=== PATIENT | female | born 1990 ===

== ENCOUNTER 2021-12-09 23:25 | Inpatient (IN) | payer MEDICARE, MEDICAID, SELFPAY ==
[2021-12-09 23:45] VITALS: BP 118/72; PULSE 84; RESP 20; TEMP 36.4; O2SAT 97; BMI 29.4
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
[2021-12-10 06:00] VITALS: BP 110/67; PULSE 65; RESP 18; TEMP 36.1; O2SAT 95
[2021-12-10 06:51] LABS: Glucose Point of Care 119 mg/dL (70-110)
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
[2021-12-10] MEDS: escitalopram 10 mg Tablet 20 MG PO (09:55)
[2021-12-10] MEDS: metformin 500 mg Tablet 1000 MG PO ×2 (09:55→17:56)
[2021-12-10] MEDS: OLANZapine 5 mg TABLET PO ×2 (09:55→17:56)
[2021-12-10] MEDS: pioglitazone 30 mg Tablet 15 MG PO (10:46)
[2021-12-10 11:18] LABS: Glucose Point of Care 134 mg/dL (70-110)
--- NOTE | 2021-12-10 11:22 | NPU.GN ---
[facility] Topic:Coping Mechanisms Activity General Mood of Group: Ning did attend and participate in group today. Her hygiene was ok and she was pleasant and social with others in group.
[2021-12-10 14:00] VITALS: BP 112/69; PULSE 86; RESP 18; TEMP 36.6; O2SAT 97
[2021-12-10 16:56] LABS: Glucose Point of Care 115 mg/dL (70-110)
[2021-12-10] MEDS: prazosin 1 mg Capsule PO (20:40)
[2021-12-10 20:42] LABS: Glucose Point of Care 155 mg/dL (70-110)
[2021-12-10 20:46] VITALS: BP 119/76; PULSE 72; RESP 16; TEMP 36.7; O2SAT 95
[2021-12-11 06:00] VITALS: BP 103/65; PULSE 82; RESP 17; TEMP 36.6; O2SAT 95
[2021-12-11 07:05] LABS: Glucose Point of Care 119 mg/dL (70-110)
[2021-12-11] MEDS: escitalopram 10 mg Tablet 20 MG PO (10:31)
[2021-12-11] MEDS: OLANZapine 5 mg TABLET PO ×2 (10:31→17:16)
[2021-12-11] MEDS: metformin 500 mg Tablet 1000 MG PO ×2 (10:32→17:16)
[2021-12-11 11:54] LABS: Glucose Point of Care 132 mg/dL (70-110)
[2021-12-11 13:47] VITALS: BP 104/68; PULSE 82; RESP 16; TEMP 36.4; O2SAT 96
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
[2021-12-11 16:27] LABS: Glucose Point of Care 146 mg/dL (70-110)
[2021-12-11] MEDS: prazosin 1 mg Capsule PO (20:01)
[2021-12-11 21:23] VITALS: BP 104/68; PULSE 82; RESP 16; TEMP 36.4; O2SAT 96
[2021-12-11 21:24] VITALS: BP 127/82; PULSE 80; RESP 18; TEMP 36.6; O2SAT 97
[2021-12-12 06:00] VITALS: BP 122/70; PULSE 77; RESP 18; TEMP 36.5; O2SAT 97
[2021-12-12] MEDS: metformin 500 mg Tablet 1000 MG PO ×2 (09:28→17:30)
[2021-12-12] MEDS: escitalopram 10 mg Tablet 20 MG PO (09:28)
[2021-12-12] MEDS: OLANZapine 5 mg TABLET PO ×2 (09:29→17:30)
[2021-12-12] MEDS: pioglitazone 30 mg Tablet 15 MG PO (09:30)
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
[2021-12-12 14:00] VITALS: BP 109/70; PULSE 76; RESP 18; TEMP 36.6; O2SAT 96
[2021-12-12 20:12] VITALS: BP 96/62; PULSE 69; RESP 18; TEMP 36.4; O2SAT 95
[2021-12-12] MEDS: prazosin 1 mg Capsule PO (20:34)
[2021-12-13 06:00] VITALS: BP 93/62; PULSE 78; RESP 18; TEMP 36.6; O2SAT 94
[2021-12-13 09:08] LABS: Glucose Point of Care 132 mg/dL (70-110)
[2021-12-13] MEDS: pioglitazone 30 mg Tablet 15 MG PO (09:10)
[2021-12-13] MEDS: metformin 500 mg Tablet 1000 MG PO ×2 (09:10→17:05)
[2021-12-13] MEDS: escitalopram 10 mg Tablet 20 MG PO (09:10)
[2021-12-13] MEDS: OLANZapine 5 mg TABLET PO ×2 (09:10→17:05)
[2021-12-13 11:13] LABS: Glucose Point of Care 175 mg/dL (70-110)
[2021-12-13] MEDS: nicotine 2 mg Gum BUCCAL ×4 (11:17→21:30)
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
[2021-12-13 14:00] VITALS: BP 122/77; PULSE 71; RESP 16; TEMP 36.2; O2SAT 99
[2021-12-13 16:47] LABS: Glucose Point of Care 271 mg/dL (70-110)
[2021-12-13 20:21] VITALS: BP 124/86; PULSE 85; RESP 20; O2SAT 98
[2021-12-13 20:34] LABS: Glucose Point of Care 223 mg/dL (70-110)
[2021-12-13] MEDS: prazosin 1 mg Capsule PO (20:57)
[2021-12-13] MEDS: OLANZapine 5 mg ODT PO (21:54)
--- NOTE | 2021-12-14 03:47 | PC.NURSE ---
2154- Zyprexa given for agitation. It was effective.
[2021-12-14 06:00] VITALS: BP 107/71; PULSE 82; RESP 20; TEMP 36.6; O2SAT 98; BMI 29.4
[2021-12-14 07:15] LABS: Glucose Point of Care 139 mg/dL (70-110)
[2021-12-14] MEDS: nicotine 2 mg Gum BUCCAL ×5 (07:19→20:25)
[2021-12-14] MEDS: pioglitazone 30 mg Tablet 15 MG PO (08:26)
[2021-12-14] MEDS: OLANZapine 5 mg TABLET PO ×2 (08:26→17:11)
[2021-12-14] MEDS: escitalopram 10 mg Tablet 20 MG PO (08:26)
[2021-12-14] MEDS: metformin 500 mg Tablet 1000 MG PO ×2 (08:26→17:11)
[2021-12-14] MEDS: OLANZapine 5 mg ODT PO (11:17)
--- NOTE | 2021-12-14 11:19 | PC.NURSE ---
Prn note Patient continues to c/o voices. Zyprexa Zydis given to help with voices and anxiety. Will monitor for effectiveness.
[2021-12-14 11:31] LABS: Glucose Point of Care 163 mg/dL (70-110)
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
[2021-12-14 14:00] VITALS: BP 103/72; PULSE 86; RESP 20; TEMP 36.7; O2SAT 98
[2021-12-14] MEDS: acetaminophen 325 mg Tablet 650 MG PO (15:54)
[2021-12-14 16:36] LABS: Glucose Point of Care 204 mg/dL (70-110)
[2021-12-14 20:03] VITALS: BP 121/77; PULSE 71; RESP 18; TEMP 36.4; O2SAT 99
[2021-12-14] MEDS: prazosin 1 mg Capsule PO (20:26)
[2021-12-15 06:00] VITALS: BP 130/84; PULSE 76; RESP 16; TEMP 36.3; O2SAT 97
[2021-12-15 06:18] LABS: Glucose Point of Care 128 mg/dL (70-110)
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
[2021-12-15] MEDS: OLANZapine 5 mg TABLET PO ×2 (08:09→20:11)
[2021-12-15] MEDS: metformin 500 mg Tablet 1000 MG PO ×2 (08:09→16:43)
[2021-12-15] MEDS: escitalopram 10 mg Tablet 20 MG PO (08:09)
[2021-12-15] MEDS: pioglitazone 30 mg Tablet 15 MG PO (08:10)
[2021-12-15] MEDS: nicotine 2 mg Gum BUCCAL ×4 (08:10→19:37)
[2021-12-15] MEDS: acetaminophen 325 mg Tablet 650 MG PO ×2 (10:17→18:54)
[2021-12-15 11:23] LABS: Glucose Point of Care 131 mg/dL (70-110)
--- NOTE | 2021-12-15 11:32 | NPU.GN ---
[facility] Topic:Mental Health discussion General Mood of Group: Ning did attend and participate in group today. Hygiene was ok and so was demeanor.
[2021-12-15 14:00] VITALS: BP 126/84; PULSE 73; RESP 16; TEMP 36.6; O2SAT 99
[2021-12-15] MEDS: OLANZapine 5 mg ODT PO (15:35)
[2021-12-15 16:25] LABS: Glucose Point of Care 198 mg/dL (70-110)
[2021-12-15] MEDS: prazosin 1 mg Capsule PO (20:11)
[2021-12-15 21:09] VITALS: BP 130/88; PULSE 84; RESP 16; TEMP 36.6; O2SAT 98
[2021-12-16 06:00] VITALS: BP 113/78; PULSE 76; RESP 18; TEMP 36.6; O2SAT 96
[2021-12-16 06:56] LABS: Glucose Point of Care 214 mg/dL (70-110)
[2021-12-16] MEDS: escitalopram 10 mg Tablet 20 MG PO (08:15)
[2021-12-16] MEDS: metformin 500 mg Tablet 1000 MG PO ×2 (08:15→16:41)
[2021-12-16] MEDS: nicotine 2 mg Gum BUCCAL ×4 (08:16→17:04)
[2021-12-16] MEDS: OLANZapine 5 mg TABLET PO ×2 (08:16→20:39)
[2021-12-16] MEDS: pioglitazone 30 mg Tablet 15 MG PO (08:59)
[2021-12-16] MEDS: acetaminophen 325 mg Tablet 650 MG PO (09:03)
--- NOTE | 2021-12-16 10:47 | NPU.GN ---
[facility] Topic:Positive Coping Skills General Mood of Group: Ning did attend group today. She was social and her hygiene was ok. Her demeanor was ok.
[2021-12-16 11:39] LABS: Glucose Point of Care 168 mg/dL (70-110)
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
[2021-12-16 14:00] VITALS: RESP 16
[2021-12-16] MEDS: prazosin 1 mg Capsule PO (20:39)
[2021-12-16 21:41] LABS: Glucose Point of Care 161 mg/dL (70-110)
[2021-12-16 22:00] VITALS: RESP 17
[2021-12-17 06:00] VITALS: BP 117/79; PULSE 78; RESP 16; TEMP 36.6; O2SAT 97
[2021-12-17 06:24] LABS: Glucose Point of Care 144 mg/dL (70-110)
[2021-12-17] MEDS: nicotine 2 mg Gum BUCCAL ×3 (09:01→15:17)
[2021-12-17] MEDS: metformin 500 mg Tablet 1000 MG PO (09:01)
[2021-12-17] MEDS: pioglitazone 30 mg Tablet 15 MG PO (09:01)
[2021-12-17] MEDS: escitalopram 10 mg Tablet 20 MG PO (09:01)
[2021-12-17] MEDS: OLANZapine 5 mg TABLET PO (09:01)
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
[2021-12-17 11:03] VITALS: BP 117/79; PULSE 78; RESP 16; TEMP 36.6; O2SAT 97
[2021-12-17 11:16] LABS: Glucose Point of Care 192 mg/dL (70-110)
--- NOTE | 2021-12-17 11:35 | NPU.GN ---
[facility] Topic:Positive Thoughts/ Negative Thoughts General Mood of Group: Ning did attend group. She was social and polite. Ning's hygiene is poor.
--- NOTE | 2021-12-17 13:56 | DCPLANNER ---
IMM WAS GIVEN TO PT AND MEDICARE RULES WERE REVIEWED.
[2021-12-17 16:24] LABS: Glucose Point of Care 250 mg/dL (70-110)
== END 2021-12-17 16:28 | disposition home or self-care (01) | DRG 881 ==
PROVIDERS: Admitting Provider Psychiatry & Neurology Psychiatry; Visit Provider Psychiatry & Neurology Psychiatry
DX: F32.A Depression, unspecified (principal); R45.851 Suicidal ideations; R44.0 Auditory hallucinations; F81.9 Developmental disorder of scholastic skills, unspecified; F41.9 Anxiety disorder, unspecified; F51.5 Nightmare disorder; Z91.51 Personal history of suicidal behavior; Z62.810 Personal history of physical and sexual abuse in childhood
CPT/HCPCS: 36416; 82962; 97150; 97165